=== PATIENT | female | born 1985 | race Caucasian/White ===

== ENCOUNTER 2020-09-07 00:58 | Emergency (ER) | payer BC ==
[~2020-09-07] VITALS: Ht 157.5 cm; Wt 74.8 kg
[2020-09-07 01:18] LABS: URINE BILIRUBIN NEGATIVE (Negative); URINE BLOOD 1+ (Negative); URINE CLARITY SL CLOUDY; URINE COLOR YELLOW; URINE GLUCOSE-RANDOM NEGATIVE (Negative); URINE KETONES NEGATIVE (Negative); URINE LEUKOCYTES-REFLEX NEGATIVE (Negative); URINE NITRITE-REFLEX NEGATIVE (Negative); URINE PROTEIN NEGATIVE (Negative); URINE SPECIFIC GRAVITY 1.025 (1.005-1.030); URINE UROBILINOGEN 0.2 E.U./dl (0.2-1.0)
[2020-09-07 01:39] LABS: ABSOLUTE BASOPHILS 0.1 thou/uL (0.0-0.2); ABSOLUTE EOSINOPHILS 0.1 thou/uL (0.0-0.7); ABSOLUTE LYMPHOCYTES 1.5 thou/uL (0.8-5.3); ABSOLUTE MONOCYTES 0.7 thou/uL (0.0-1.2); BASOPHILS 1.1 %; EOSINOPHILS 0.8 %; HEMOGLOBIN 13.6 gm/dL (12.0-15.0); MCH 32.8 pg (26.0-34.0); MCV 96.2 fL (80.0-100.0); MPV 10.5 fl. (7.2-11.1); NUCLEATED RBCS 0 /100WBC; PLATELET COUNT* 198 thou/uL (150-400); POLYS 68.1 %; RBC 4.16 mil/uL (4.20-5.00); RDW-CV 12.5 % (10.5-14.5); WBC 7.3 thou/uL (4.0-11.0)
[2020-09-07 01:42] LABS: CREATININE 0.8 mg/dL (0.6-1.3); POTASSIUM 3.3 mmol/L (3.5-5.1)
[2020-09-07 01:46] LABS: ALBUMIN 3.9 g/dL (3.4-5.0); TOTAL BILIRUBIN 0.3 mg/dL (<0.1-1.0); TOTAL PROTEIN 7.5 g/dL (6.4-8.2)
[2020-09-07 01:55] LABS: CASTS None Seen /LPF (None Seen); SQUAMOUS >10 Many /LPF (0-3); URINE RBC 0-2 Rare /HPF (0-2); URINE WBC-REFLEX 0-5 Rare /HPF (0-5)
[2020-09-07 01:56] LABS: AMORPHOUS PHOSPHATES Many /LPF (None Seen); BACTERIA-REFLEX 1-9 Few /HPF (None Seen)
[2020-09-07] MEDS ORDERED: ZOFRAN ODT4 MG PO (04:05)
[2020-09-07] MEDS ORDERED: HYDROCODON-ACE1 EAC8 PO (04:05)
[2020-09-07 04:15] VITALS: BP 133/83
== END 2020-09-07 04:17 | disposition home or self-care (01) ==
LOC: M.ERS 00:58
PROVIDERS: Emergency Medicine
DX: K80.50 Calculus of bile duct without cholangitis or cholecystitis without obstruction (principal)

== ENCOUNTER 2021-08-21 11:46 | Emergency (ER) | payer BC ==
[~2021-08-21] VITALS: Ht 157.5 cm; Wt 72.6 kg
[~2021-08-21 11:46] MED LIST: HYDROCODON-ACE1 EAC8 PO; ZOFRAN ODT4 MG PO
[2021-08-21 11:57] VITALS: BP 149/93
== END 2021-08-21 12:56 | disposition home or self-care (01) ==
LOC: M.ERS 11:46
DX: S01.81XA Laceration without foreign body of other part of head, initial encounter (principal); W22.8XXA Striking against or struck by other objects, initial encounter; Y93.89 Activity, other specified; Y92.89 Other specified places as the place of occurrence of the external cause; Y99.8 Other external cause status